=== PATIENT | female | born 1960 | race Caucasian/White ===

== ENCOUNTER → 2024-01-15 13:49 | Outpatient (REF) | payer OTHER, SELFPAY | LOC: HWRAD 13:49 | PROVIDERS: ATTENDING PHYSICIAN Family Medicine | DX: R91.8 Other nonspecific abnormal finding of lung field (principal) | CPT/HCPCS: 71250 ==

== ENCOUNTER → 2024-01-29 13:17 | Outpatient (REF) | payer OTHER, SELFPAY | LOC: RAD 13:17 | PROVIDERS: ATTENDING PHYSICIAN Family Medicine | DX: R09.89 Other specified symptoms and signs involving the circulatory and respiratory systems (principal) | CPT/HCPCS: 93880 ==

== ENCOUNTER → 2024-02-14 08:26 | Outpatient (REF) | payer OTHER, SELFPAY | LOC: RAD 08:26 | PROVIDERS: ATTENDING PHYSICIAN Family Medicine | DX: I77.9 Disorder of arteries and arterioles, unspecified (principal) | CPT/HCPCS: 93930 ==

== ENCOUNTER 2025-01-08 09:18 | Emergency (ER) | payer OTHER, SELFPAY ==
[2025-01-08 09:20] VITALS: BP 183/101
[2025-01-08 09:48] LABS: % Eosinophils 0.5 % (0-6); % Immature Granulocytes 0.5 % (0-0.5); % Lymphocytes 28.4 % (20.5-51.1); % Monocytes 9.2 % (1.7-9.3); % Neutrophils 60.4 % (42.2-75.2); Absolute Basophils 0.1 10^3/uL (0-0.2); Absolute Eosinophils 0.1 10^3/uL (0-0.7); Absolute Immature Granulocytes 0.1 10^3/uL (0-0.05); Absolute Lymphocytes 3.3 10^3/uL (1.2-3.4); Absolute Monocytes 1.1 10^3/uL (0.1-0.6); Absolute Neutrophils 6.9 10^3/uL (1.4-6.5); Hematocrit 43.4 % (37.0-47.0); Hemoglobin 14.7 g/dL (12.0-16.0); Mean Corp Hgb Conc. 33.9 g/dL (33.0-37.0); Mean Corpuscular Hgb 29.6 pg (27.0-31.0); Mean Corpuscular Volume 87.3 fL (81.0-99.0); Mean Platelet Volume 10.4 fL (7.4-10.4); Nucleated Red Blood Cells % 0 %; Platelet Count 361 10^3/uL (130-400); Red Blood Cell Count 4.97 10^6/uL (4.20-5.40); Red Cell Dist. Width 14.2 % (11.5-14.5); White Blood Cell Count 11.5 10^3/uL (4.8-10.8)
[2025-01-08 10:08] LABS: ALT (SGPT) 20 U/L (0-35); AST (SGOT) 23 U/L (14-36); Albumin 4.4 g/dl (3.5-5.0); Alkaline Phosphatase 67 U/L (38-126); Blood Urea Nitrogen 25 mg/dl (7-17); Carbon Dioxide 20 mmol/L (22-30); Chloride 108 mmol/L (98-107); Glucose 132 mg/dl (70-99); Lipase 44 U/L (23-300); Potassium 4.3 mmol/L (3.5-5.1); Sodium 139 mmol/L (135-145); Total Bilirubin 0.5 mg/dl (0.2-1.3); Total Protein 7.7 g/dl (6.3-8.2); eGFR > 60.00
[2025-01-08 10:41] LABS: TSH Reflex To Free T4 0.66 uIU/ml (0.47-4.68)
--- NOTE | 2025-01-08 11:01 | ED.GENMED ---
History of Present Illness
General
Chief Complaint: Abdominal Pain
Source: patient
Time Seen by Provider: 01/08/25 10:53
History of Present Illness
History of Present Illness:
64-year-old female with past medical history of hypertension, previous splenectomy, Hodgkin's lymphoma presenting to the emergency department at the request of her primary care doctor for evaluation of generalized lower abdominal discomfort that is
been ongoing for the last week, not any different today, but notes symptoms have not improved despite OTC Motrin. Patient was seen by her primary care earlier in the week who checked a urinalysis which was reportedly negative. Patient states she
has had UTIs before but is currently not having any urinary symptoms. Denies any fevers, chills, rigors, bowel changes, back or flank pain, change in oral intake, chest pain or shortness of breath. Patient notes previous history of splenectomy
from 25 years ago as well as a hernia but otherwise no other abdominal surgeries. Social history noncontributory.
Past History
Past History
ED Past Medical History: Cancer, HTN and Hypothyroidism
ED Past Surgical History: Tonsilectomy and Other (Splenectomy)
Social History
Tobacco: Non-smoker
Alcohol: None
Drug: None
Personal:
Living: with family
Employment: Employed
Review of Systems
Review of Systems
All Other Systems: ROS reviewed and negative except as documented in HPI and ROS
Phy Exam
Physical Exam
Physical Exam:
GENERAL: Alert , in no apparent distress
EYE: clear conjunctiva b/l
HEAD: NCAT
ENT: mmm.
CARDIAC: Regular rate and rhythm .
LUNGS: Clear breath sounds bilaterally, no acute respiratory distress, no wheezes/rales/rhonchi
ABDOMEN: Soft, without focal tenderness, no r/g, no cvat, negative Johnson sign, no tenderness at McBurney's point
NEUROLOGICAL: Alert and oriented
SKIN: Warm and dry, skin intact.
MUSCULOSKELETAL: well perfused.
PSYCH: Normal and appropriate interaction.
Scores
Heart Failure Risk
Heart Failure Risk Score: Not Applicable
Heart Score for Chest Pain Patients
STEMI patient?: Not applicable
Withdrawal Assessment of Alcohol
Withdrawal Assessment Completed?: Not applicable
Course
Orders/Labs/Results
Orders:
Orders
01/08/25 09:35
Complete Blood Count/With Diff Urgent
Comprehensive Metabolic Panel Urgent
Lipase Urgent
TSH Reflex To Free T4 Urgent
01/08/25 11:00
0.9% Sodium Chloride 1000 ml [Nss] 1,000 ml IV BOLUS
01/08/25 11:01
CT Abd/pelvis W Iv Cont Urgent
Comment:
Reason For Exam: generalized lower abd pain
01/08/25 11:33
Lactic Acid Q4H
Comment: CANCEL 2nd LACTIC ACID IF 1st LACTIC ACID IS LESS THAN 2
Urinalysis Reflex To Culture Urgent
Date Specimen was Collected: 01/08/25
Time Specimen was Collected: 11:23
Urine Microscopic Reflex Cult Urgent
Urine Culture Urgent
RUFUS Source: U
Specimen Description:
Obtained by: Random
Date Specimen was Collected: 01/08/25
Time Specimen was Collected: 11:23
01/08/25 12:21
Phosphate Enema [Fleet Phosphate Enema-Adult] 135 ml RECTAL NOW STA
Abnormal Lab Results
01/08/25 01/08/25
09:35 11:33
WBC 11.5 H 10^3/uL
(4.8-10.8)
Abs Immat Gran (auto) 0.1 H 10^3/uL
(0-0.05)
Absolute Neuts (auto) 6.9 H 10^3/uL
(1.4-6.5)
Absolute Monos (auto) 1.1 H 10^3/uL
(0.1-0.6)
Chloride 108 H mmol/L
(98-107)
Carbon Dioxide 20 L mmol/L
(22-30)
BUN 25 H mg/dl
(7-17)
Glucose 132 H mg/dl
(70-99)
Ur Occult Blood Reflex 1+ A
(Negative)
Leukocyte Esterase Rfl 1+ A
(Negative)
Urine RBC 3-6 A /HPF
(0-2)
Urine Bacteria (Reflex) Few A
(Negative)
01/08/25 09:35
01/08/25 09:35
Vital Signs
Initial and Last Documented VS:
Initial Vital Signs
Temp Pulse Resp BP Pulse Ox
98.1 F 136 16 183/101 96
01/08/25 09:20 01/08/25 09:20 01/08/25 09:20 01/08/25 09:20 01/08/25 09:20
Last Documented Vital Signs
Temp Pulse Resp BP Pulse Ox
98.1 F 116 16 181/82 98
01/08/25 09:20 01/08/25 12:04 01/08/25 12:04 01/08/25 12:04 01/08/25 12:04
MDM/Problems Addressed
Differential Diagnosis Includes:
Colitis, diverticulitis, appendicitis, given location of reported pain as well as physical exam findings I have less suspicion for cholecystitis, pancreatitis
MDM/Problems Addressed:
64-year-old female presenting to the ER for evaluation of 1 week of lower abdominal pain, no other symptoms associated with the pain. Attempted some Motrin earlier in the week with no relief. Advised by the primary care provider to come to the ER
for imaging. Labs initiated on arrival show a mild leukocytosis of 11,000, there is prerenal azotemia as well. Patient tachycardic and hypertensive in triage. Given her tachycardia and leukocytosis I added on a lactic acid to her workup. 1 L
normal saline ordered. Patient declining anything for pain. CT of the abdomen and pelvis ordered.
Chronic conditions affecting care: Immunosuppressed (Due to previous splenectomy)
*Radiology
Radiology exam reviewed: radiology read reviewed
*Pulse Oximetry
Patient hypoxic: no
*Critical Care Note
Total Time (30-74mins, 75-104mins- exclusive of procedures): Not Applicable
Patient Management
Escalation/DeEscalation of care consider admission/obs:
CT findings noted for constipation/stercoral colitis. Patient stating that she had a bowel movement this morning and does not feel any intense rectal pressure at this time. We attempted Fleet enema and patient was able to have a bowel movement.
She states no pain presently. Advise increase water soluble foods in diet as well as oral intake of fluids. Prescription for MiraLAX sent to pharmacy. Patient is otherwise stable for discharge home and aware of return precautions to the ER.
ED Attending Note
-
Portions of this chart may have been created with voice recognition software.� Occasional wrong word or��sound alike� substitutions may have occurred due to the inherent limitations of voice recognition software.
Discharge Plan
Departure
Patient Disposition: Home (Routine Discharge)
Date of Disposition: 01/08/25
Time of Disposition: 13:06
Patient with high blood pressure during this ER visit?: Yes
Discharge Problem:
Stercoral colitis
Instructions: Constipation, Adult (DC)
Prescriptions:
New
polyethylene glycol 3350 [Miralax] 17 gram powder in packet
17 g PO ONCE Qty: 10 0RF
No Action
loratadine 10 MG tablet
10 mg PO DAILY
levothyroxine 112 MCG tablet
112 mcg PO DAILY@0700
lisinopril 2.5 MG tablet
2.5 mg PO DAILY
cholecalciferol (vitamin D3) 2,000 UNITS tablet
2,000 units PO DAILY
oxycodone 5 MG tablet
5 - 10 mg PO Q4HPRN PRN (Reason: moderate to severe pain) Qty: 20 0RF
Referrals:
Miguel Angel Siegel DO [Family Provider] -
Interventions
Interventions:
*General Assessment Last Done: 01/08/25 12:25
ED- Fall Risk Assessment Last Done: 01/08/25 12:25
*Nursing Disposition Last Done: 01/08/25 14:00
PW-Yoaimk-Glwpzxwujg Assessment Last Done: 01/08/25 11:30
Discharge Date and Time
Discharge Date/Time: 01/08/25 14:08
Print Language: GEORGIAN
[2025-01-08] MEDS: NSS 1000 IV (11:36)
[2025-01-08 11:40] LABS: Urine Albumin Negative (Neg - Trace); Urine Bilirubin Negative (Negative); Urine Character Clear (Clear); Urine Color Yellow; Urine Glucose Negative (Negative); Urine Ketone Negative (Negative); Urine Leukocyte 1+ (Negative); Urine Nitrite Negative (Negative); Urine Occult Blood 1+ (Negative); Urine Specific Gravity 1.005 (<1.030); Urine Urobilinogen Negative (Neg - 1+)
[2025-01-08 11:57] LABS: Urine Bacteria Few (Negative); Urine Squamous Cell 16-20 /LPF (Few)
[2025-01-08 12:04] VITALS: BP 181/82
[2025-01-08] MEDS: FLEET PHOSPHATE ENEMA-ADULT 135 ML RECTAL (12:47)
== END 2025-01-08 14:08 | disposition home or self-care (01) ==
LOC: EMR 09:18
PROVIDERS: Physician Assistant Medical; EMERGENCY PHYSICIAN Emergency Medicine; FAMILY PHYSICIAN Family Medicine
DX: K52.89 Other specified noninfective gastroenteritis and colitis (principal); I10 Essential (primary) hypertension
CPT/HCPCS: 99285; 96360; 74177; 80053; 81003; 81015; 83605; 83690; 84443; 85025; 87086; Q9967

== ENCOUNTER → 2025-03-24 13:26 | Outpatient (REF) | payer OTHER, SELFPAY | LOC: DHVS 13:26 | PROVIDERS: ATTENDING PHYSICIAN Surgery Vascular Surgery; FAMILY PHYSICIAN Family Medicine | DX: I87.1 Compression of vein (principal) | CPT/HCPCS: 93923; 93930 ==

== ENCOUNTER → 2025-08-11 10:01 | Outpatient (REF) | payer OTHER, SELFPAY | LOC: HWRAD 10:01 | PROVIDERS: ATTENDING PHYSICIAN Family Medicine | DX: Z12.31 Encounter for screening mammogram for malignant neoplasm of breast (principal); Z13.820 Encounter for screening for osteoporosis | CPT/HCPCS: 77063; 77067; 77080 ==

== ENCOUNTER → 2025-08-26 10:16 | Outpatient (REF) | payer OTHER, SELFPAY | LOC: WDC 10:16 | PROVIDERS: ATTENDING PHYSICIAN Family Medicine | DX: R92.8 Other abnormal and inconclusive findings on diagnostic imaging of breast (principal) | CPT/HCPCS: 76642 ==

== ENCOUNTER → 2025-09-01 11:55 | Outpatient (REF) | payer OTHER, SELFPAY ==
--- NOTE | 2025-09-01 14:31 | OID.BR.INTR ---
[facility] Breast Navigator - Initial
- -
Date of Contact: 09/01/25
Met with patient. Patient given written information on navigator service available at [facility]. Will follow up as needed per protocol.
== END ==
LOC: WDC 11:55
PROVIDERS: ATTENDING PHYSICIAN Family Medicine
DX: N63.23 Unspecified lump in the left breast, lower outer quadrant (principal)
CPT/HCPCS: 19083; 88305; 88341; 88342; 88360; A4648

== ENCOUNTER → 2025-09-24 09:01 | Outpatient (REF) | payer OTHER, SELFPAY | LOC: WDC 09:01 | PROVIDERS: ATTENDING PHYSICIAN Surgery | DX: C50.412 Malignant neoplasm of upper-outer quadrant of left female breast (principal) | CPT/HCPCS: 19285; A4648 ==

== ENCOUNTER 2025-09-28 06:11 | Day surgery (SDC) | payer OTHER, SELFPAY ==
[2025-09-22 08:58] LABS: Hematocrit 44.2 % (37.0-47.0); Hemoglobin 14.5 g/dL (12.0-16.0); Mean Corp Hgb Conc. 32.8 g/dL (33.0-37.0); Mean Corpuscular Volume 87.9 fL (81.0-99.0); Platelet Count 394 10^3/uL (130-400); Red Cell Dist. Width 14.6 % (11.5-14.5)
[2025-09-22 09:33] LABS: ALT (SGPT) 18 U/L (0-35); AST (SGOT) 20 U/L (14-36); Albumin 4.6 g/dl (3.5-5.0); Alkaline Phosphatase 63 U/L (38-126); Blood Urea Nitrogen 19 mg/dl (7-17); Calcium 10.2 mg/dl (8.4-10.2); Carbon Dioxide 26 mmol/L (22-30); Chloride 105 mmol/L (98-107); Glucose 132 mg/dl (70-99); Potassium 4.8 mmol/L (3.5-5.1); Sodium 136 mmol/L (135-145); Total Protein 7.9 g/dl (6.3-8.2); eGFR 56.11
[2025-09-22 09:45] LABS: Prealbumin (Transthyretin) 27.2 mg/dl (17.6-36.0)
[2025-09-22 09:57] LABS: Vitamin D, 25-OH*** 36.1 ng/mL (30-80)
[2025-09-22 14:09] VITALS: BMI 27.5
--- NOTE | 2025-09-23 17:30 | PTCARENOTE ---
Abn ECG, Dr. Kruger notified, OK if stable, no new interventions requested.
--- NOTE | 2025-09-24 09:20 | PTCARENOTE ---
Patients 09/22 Creat 1.1- GFR 56.11- Chantel and Nabila @ Dr. Quiñonez office notified
[2025-09-28 07:45] VITALS: BMI 27.5
[2025-09-28 07:46] VITALS: BP 158/108
[2025-09-28] MEDS: TYLENOL 1000 MG PO (07:51)
[2025-09-28] MEDS: NORMOSOL-R/PLASMALYTE-A 1000 IV (08:01)
[2025-09-28] MEDS: LOVENOX 40 MG SC (08:11)
[2025-09-28] MEDS: TRANSDERM-SCOP 1 PATCH TRANSDERM (08:11)
[2025-09-28] MEDS: VANCOCIN 200 IV (08:12)
--- NOTE | 2025-09-28 09:45 | W.IMMPOSTOP ---
Surgical Immed Post Op Note
-
Primary Surgeon: stefani
Assisting Surgeon: none
Pre-op Diagnosis: Left breast ca
Post-op Diagnosis: Left breast ca
Procedure Performed: Left localized lumpectomy
Anesthesia Type: TIVA
Specimen / Cultures: left lumpectomy and margins
Estimated Blood Loss: 4cc
Complications: None
Operative Findings: clip, mass, and reflector in specimen
--- NOTE | 2025-09-28 09:47 | OR.RPT ---
Operative Report
Operative Report
Date of procedure: 09/28/2025
Surgeon: Tate
Preoperative diagnosis: Left breast carcinoma
Postoperative diagnosis: Left breast carcinoma
Procedure left localized lumpectomy
The patient is a 65-year-old female with image detected left breast carcinoma. This was favorable and small and the patient qualified for no axillary surgical staging. On the day prior to the procedure she presented to the [place] [facility] where Analia reflector was placed at the tumor site. On the day of the surgery she presented to the same-day surgical services unit. She verified site and procedure. She was prepped and DVT and antibiotic prophylaxis were provided. She was
transferred to the operating room and in the supine position intravenous sedation was delivered. The left breast was prepped and draped in usual sterile fashion and team members performed an appropriate timeout procedure.
All tissues were anesthetized with 1% lidocaine plain and a curvilinear incision was made overlying the area of highest Analia signal. Skin flaps were elevated with the cautery and dissection was carried down to the tumor mass localized with the Analia
probe. Wide lumpectomy was performed using the cautery. Time antibody was noted and the specimen was oriented for the pathologist. Specimen radiography confirmed the presence of the mass, clip, and reflector within it. Additional margins were
harvested for permanent analysis from the posterior, medial, superior, lateral, inferior, and anterior dimensions. These were oriented as well. Hemostasis was verified. Hemoclips were placed in the resection cavity and Marcaine 0.5% plain was
instilled in total tissues. The wound was closed using simple interrupted 3-0 plain on deep and intermediate tissue and skin was closed using simple interrupted 3-0 plain on subcutaneous tissue and a running subcuticular 4-0 Monocryl. Surgical
glue and a sterile compressive dressing were applied. All sponge needle and instrument counts were correct and the patient was transferred back to the same-day surgical services unit to recover.
()
[2025-09-28 09:48] VITALS: BP 102/57
[2025-09-28 10:01] VITALS: BP 109/61
[2025-09-28 10:15] VITALS: BP 129/72
[2025-09-28 10:30] VITALS: BP 142/65
== END 2025-09-28 10:50 | disposition home or self-care (01) ==
LOC: SDS 06:11
PROVIDERS: ATTENDING PHYSICIAN Surgery; FAMILY PHYSICIAN Family Medicine
DX: D05.12 Intraductal carcinoma in situ of left breast (principal)
CPT/HCPCS: 19301; 36415; 76098; 80053; 82306; 84134; 85027; 88305; 88307; 88341; 88342; 93005